=== PATIENT | male | born 1965 | race African-American/Black ===

== ENCOUNTER 2020-02-26 06:53 | Inpatient (IN) | payer BC ==
[~2020-02-26] VITALS: Ht 172.7 cm; Wt 129.7 kg
[2020-02-26] MEDS ORDERED: PROPOFOL 10MG/ML 100ML 0 ML IV ONE (07:49)
[2020-02-26] MEDS ORDERED: MIDAZOLAM HCL 2 MG/2 ML VIAL ONE ×5 (08:02→13:57)
[2020-02-26] MEDS ORDERED: FENTANYL CITRATE/PF 50MCG/ML 2ML VIAL ONE ×4 (08:02→12:47)
[2020-02-26] MEDS ORDERED: LIDOCAINE HCL 1% 20ML VIAL (Pyxis) INJ ONE ×3 (08:03→13:06)
[2020-02-26] MEDS ORDERED: GENTAMICIN/NS IRRIGATION 500 ML IR ONE (08:03)
[2020-02-26] MEDS ORDERED: IODIXANOL 320MG/ML 100 ML BOTTLE IV ONE ×2 (08:03→12:02)
[2020-02-26] MEDS ORDERED: IOHEXOL-300 100 ML BOTTLE ONE (08:03)
[2020-02-26] MEDS ORDERED: PROPOFOL 200MG/20ML VIAL IV ONE ×3 (08:08→14:35)
[2020-02-26] MEDS ORDERED: SODIUM CHLORIDE 0.9% 10ML VIAL ONE ×2 (10:43→11:06)
[2020-02-26] MEDS ORDERED: BUPIVACAINE HCL/PF 0.25% (2.5MG/ML) 10ML ONE (10:43)
[2020-02-26] MEDS ORDERED: ONDANSETRON HCL 4MG/2ML INJ ONE (10:43)
[2020-02-26] MEDS ORDERED: METOCLOPRAMIDE HCL 10MG/2ML VIAL ONE (10:43)
[2020-02-26] MEDS ORDERED: LIDOCAINE HCL/PF 1% 10 MG/ML 5ML VIAL ONE ×2 (10:43→11:09)
[2020-02-26] MEDS ORDERED: PHENYLEPHRINE HCL 10 MG/ML 1ML (IV VIAL) IV ONE (11:05)
[2020-02-26] MEDS ORDERED: CEFAZOLIN SODIUM 1000MG/VIAL ONE (11:06)
[2020-02-26] MEDS ORDERED: SPIR25TA6 MT (11:08)
[2020-02-26] MEDS ORDERED: STERILE WATER FOR INJECTION 10ML VIAL ONE (11:08)
[2020-02-26] MEDS ORDERED: ATOR40TA70 MT (11:08)
[2020-02-26] MEDS ORDERED: MULT-1146 MT (11:08)
[2020-02-26] MEDS ORDERED: ZINC50TA69 MT (11:08)
[2020-02-26] MEDS ORDERED: CARV25TA47 MT (11:08)
[2020-02-26] MEDS ORDERED: COLC0.6C3 MT (11:08)
[2020-02-26] MEDS ORDERED: FURO40TA5 MT (11:08)
[2020-02-26] MEDS ORDERED: ASCO100T2 PO (11:08)
[2020-02-26] MEDS ORDERED: SACU1TAB7 MT (11:08)
[2020-02-26] MEDS ORDERED: GENTAMICIN SULF 40MG/ML 2ML VIAL ONE (14:48)
[2020-02-26 17:08] VITALS: BP 124/75
[2020-02-26 17:26] VITALS: BP 126/68
[2020-02-26 18:00] VITALS: BP 126/68
[2020-02-26] MEDS: HYDROCODONE/ACETAMINOPHEN 5/325MG TABLET PO PRN (19:04)
[2020-02-26] MEDS ORDERED: DEXTROSE 50% WATER 50ML SYRINGE IV PRN (19:30)
[2020-02-26 20:00] VITALS: BP 109/69
[2020-02-26] MEDS: CARVEDILOL 12.5MG TABLET PO SCH (20:23)
[2020-02-26] MEDS: CEFAZOLIN 1000MG PREMIX 50 ML IV SCH (20:24)
[2020-02-26] MEDS: SACUBITRIL/VALSARTAN 49MG/51MG TABLET PO SCH (20:24)
[2020-02-26] MEDS: BLOOD SUGAR DIAGNOSTIC STRIP TEST SCH (20:57)
[2020-02-26] MEDS: INSULIN LISPRO 100 UNITS/ML SUBCUT SCH (20:57)
[2020-02-26 22:00] VITALS: BP 106/59
[2020-02-27] VITALS (13 sets, daily range): BP systolic 96–144; BP diastolic 49–95
[2020-02-27] MEDS: HYDROCODONE/ACETAMINOPHEN 5/325MG TABLET PO PRN (05:28)
[2020-02-27] MEDS: CEFAZOLIN 1000MG PREMIX 50 ML IV SCH (05:28)
[2020-02-27] MEDS: INSULIN LISPRO 100 UNITS/ML SUBCUT SCH ×2 (06:39→12:20)
[2020-02-27] MEDS: BLOOD SUGAR DIAGNOSTIC STRIP TEST SCH ×2 (06:39→11:50)
[2020-02-27 07:16] LABS: CHLORIDE 105 mEq/L (98-107)
[2020-02-27 07:31] LABS: BASOPHILS % 0.4 % (0.0-2.0); HEMATOCRIT. 38.1 % (42.0-52.0); HEMOGLOBIN. 12.7 g/dL (14.0-18.0); LYMPHOCYTES % 25.9 % (20.0-50.0); MEAN CORPUSCULAR HEMOGLOBIN 29.4 pg (28.0-32.0); MEAN PLATELET VOLUME 9.3 fl (7.4-10.4); MONOCYTES % 9.5 % (2.0-8.0); NEUTROPHILS % 62.2 % (40.0-76.0); PLATELET 200 x1000/uL (130-400); RED BLOOD CELL COUNT 4.33 mill/uL (4.7-6.1)
[2020-02-27] MEDS: SACUBITRIL/VALSARTAN 49MG/51MG TABLET PO SCH (07:45)
[2020-02-27] MEDS: CARVEDILOL 12.5MG TABLET PO SCH (08:11)
[2020-02-27] MEDS ORDERED: ATORVASTATIN CALCIUM 40MG TABLET PO SCH (09:00)
[2020-02-27] MEDS ORDERED: SPIRONOLACTONE 25MG TABLET PO SCH (09:00)
[2020-02-27] MEDS ORDERED: FUROSEMIDE 40MG TABLET PO SCH (09:00)
[2020-02-27] MEDS ORDERED: COLCHICINE 0.6MG TABLET PO SCH (09:00)
[2020-02-27] MEDS ORDERED: POLYETHYLENE GLYCOL 3350 (17GM) 1 DOSE PACK PO NR (09:15)
== END 2020-02-27 13:12 | disposition home or self-care (01) | DRG 265 ==
LOC: CCL 06:53 → 3WST 15:57
PROVIDERS: ADMIT Internal Medicine Clinical Cardiac Electrophysiology; ATTEND Internal Medicine Clinical Cardiac Electrophysiology
PROC: 02PA3MZ Removal of Cardiac Lead from Heart, Percutaneous Approach (ICD-10-PCS; principal; 2020-02-26)
PROC: 02H63KZ Insertion of Defibrillator Lead into Right Atrium, Percutaneous Approach (ICD-10-PCS; 2020-02-26)
PROC: 02HK3KZ Insertion of Defibrillator Lead into Right Ventricle, Percutaneous Approach (ICD-10-PCS; 2020-02-26)
DX: T82.198A Other mechanical complication of other cardiac electronic device, initial encounter (principal); I42.0 Dilated cardiomyopathy; I50.22 Chronic systolic (congestive) heart failure; Z68.41 Body mass index [BMI] 40.0-44.9, adult; Y83.8 Other surgical procedures as the cause of abnormal reaction of the patient, or of later complication, without mention of misadventure at the time of the procedure; E11.9 Type 2 diabetes mellitus without complications; E66.9 Obesity, unspecified; M19.90 Unspecified osteoarthritis, unspecified site; Z20.828 Contact with and (suspected) exposure to other viral communicable diseases; I25.10 Atherosclerotic heart disease of native coronary artery without angina pectoris; I44.7 Left bundle-branch block, unspecified; Z80.1 Family history of malignant neoplasm of trachea, bronchus and lung; Z82.49 Family history of ischemic heart disease and other diseases of the circulatory system; Y92.89 Other specified places as the place of occurrence of the external cause; Z88.5 Allergy status to narcotic agent; Z88.8 Allergy status to other drugs, medicaments and biological substances
CPT/HCPCS: 33225; 33264; 36415; 71045; 75820; 80048; 82962; 85025; 87426; 93005; 93308; 93451; 93641; A4216; C1769; C1882; C1887; C1893; C1900; J0690; J1580; J1644; J2250; J2370; J2405; J2704; J2765; J3010; J3490; J7040; Q9967

== ENCOUNTER 2024-05-22 09:10 | Inpatient (IN) | payer BC, MEDICAID ==
[~2024-05-22] VITALS: Ht 172.7 cm; Wt 94.3 kg
[2024-05-22] MEDS: SODIUM CHLORIDE 0.9% IR NR (08:00)
[2024-05-22] MEDS: GENTAMICIN SULFATE IR NR (08:00)
[~2024-05-22 09:10] MED LIST: ALLO300T2 PO; ASCO100T2 PO; ATOR40TA70 MT; ATOR40TA70 PO; CARV25TA47 MT; CARV3.1242 PO; COLC0.6C3 MT; COLC0.6C3 PO; FURO-152 PO; FURO40TA5 MT; MULT-1146 MT; PROT40 PO; SACU1TAB PO; SACU1TAB7 MT; SPIR25TA6 MT; ZINC50TA69 MT
[2024-05-22] MEDS ORDERED: GENTAMICIN SULF 40MG/ML 2ML VIAL ONE (09:11)
[2024-05-22] MEDS ORDERED: CEFAZOLIN SODIUM 1000MG/VIAL ONE (09:11)
[2024-05-22] MEDS ORDERED: IODIXANOL 320MG/ML 100 ML BOTTLE IV ONE (09:12)
[2024-05-22 09:36] LABS: BASOPHILS % 0.5 % (0.0-2.0); HEMATOCRIT. 34.2 % (42.0-52.0); HEMOGLOBIN. 11.4 g/dL (14.0-18.0); LYMPHOCYTES % 20.4 % (20.0-50.0); MEAN CORPUSCULAR HGB CONC 33.3 g/dL (31.0-37.0); MEAN CORPUSCULAR VOLUME 96.1 fL (80.0-94.0); MEAN PLATELET VOLUME 9.3 fl (7.4-10.4); MONOCYTES % 8.5 % (2.0-8.0); NEUTROPHILS % 69.6 % (40.0-76.0); PLATELET 146 x1000/uL (130-400); RED BLOOD CELL COUNT 3.56 mill/uL (4.7-6.1); RED CELL DISTRIBUTION WIDTH 16.9 % (11.6-14.6); WHITE BLOOD COUNT 5.1 x1000/uL (4.5-11.0)
[2024-05-22 09:44] LABS: CHLORIDE 107 mEq/L (98-107); POTASSIUM 4.1 mEq/L (3.5-5.1); SODIUM 143 mEq/L (136-145)
[2024-05-22 09:45] LABS: CALCIUM 9.5 mg/dL (8.7-10.4); CARBON DIOXIDE 31 mEq/L (21-32)
[2024-05-22 09:50] LABS: CREATININE 1.1 mg/dL (0.6-1.3); GLUCOSE 107 mg/dL (70-105); UREA NITROGEN BLOOD 21 mg/dL (9-23)
[2024-05-22] MEDS ORDERED: LIDOCAINE HCL 1% 20ML VIAL ONE ×2 (09:52→12:45)
[2024-05-22 09:55] LABS: PARTIAL THROMBOPLASTIN TIME 29.1 sec (23.4-31.0); PROTHROMBIN TIME 11.6 sec (9.6-11.0)
[2024-05-22] MEDS: SODIUM CHLORIDE 0.9% 500 ML IV SCH (10:08)
[2024-05-22] MEDS ORDERED: PHENYLEPHRINE 50MG/250ML PMX 250 ML IV ONE (10:36)
[2024-05-22] MEDS ORDERED: PROPOFOL 10MG/ML 100ML 100 ML IV ONE (10:41)
[2024-05-22] MEDS ORDERED: DOPAMINE 400MG/250ML PREMIX 250 ML IV ONE (10:41)
[2024-05-22] MEDS ORDERED: FENTANYL CITRATE/PF 50MCG/ML 2ML VIAL ONE (12:00)
[2024-05-22] MEDS ORDERED: MIDAZOLAM HCL 2 MG/2 ML VIAL ONE (12:00)
[2024-05-22] MEDS ORDERED: NALOXONE HCL 0.4MG/ML VIAL IV PRN (15:00)
[2024-05-22] MEDS: HYDROCODONE/ACETAMINOPHEN 5/325MG TABLET PO PRN (15:05)
[2024-05-22] MEDS ORDERED: HYDROMORPHONE HCL/PF 1MG/ML INJ IV PRN (15:15)
[2024-05-22] MEDS ORDERED: GLYCOPYRROLATE 0.2 MG/ML 2ML VIAL IV PRN (15:15)
[2024-05-22] MEDS ORDERED: ONDANSETRON HCL 4MG/2ML INJ IV PRN (15:15)
[2024-05-22 16:26] VITALS: BP 104/69; PULSE 83; RESP 16; TEMP 36.6; O2SAT 100
[2024-05-22 16:39] VITALS: BP 104/69; PULSE 83; RESP 16; TEMP 36.6
[2024-05-22 20:17] VITALS: BP 89/72; PULSE 82; RESP 22; TEMP 36.4; O2SAT 99
[2024-05-22 21:45] VITALS: BP 91/57; PULSE 76; TEMP 97.6; O2SAT 99
[2024-05-22 21:46] VITALS: BP 91/57; PULSE 77; RESP 17; O2SAT 99
== END 2024-05-22 23:56 | disposition home or self-care (01) | DRG 276 ==
LOC: CCL 09:10 → 3WST 16:46
PROVIDERS: ADMIT Internal Medicine Clinical Cardiac Electrophysiology; ATTEND Internal Medicine Clinical Cardiac Electrophysiology
PROC: 02HK3KZ Insertion of Defibrillator Lead into Right Ventricle, Percutaneous Approach (ICD-10-PCS; principal; 2024-05-22)
PROC: 0JH609Z Insertion of Cardiac Resynchronization Defibrillator Pulse Generator into Chest Subcutaneous Tissue and Fascia, Open Approach (ICD-10-PCS; 2024-05-22)
PROC: 02PA3MZ Removal of Cardiac Lead from Heart, Percutaneous Approach (ICD-10-PCS; 2024-05-22)
PROC: 0JPT0PZ Removal of Cardiac Rhythm Related Device from Trunk Subcutaneous Tissue and Fascia, Open Approach (ICD-10-PCS; 2024-05-22)
PROC: 02HK3KZ Insertion of Defibrillator Lead into Right Ventricle, Percutaneous Approach (ICD-10-PCS; 2024-05-22)
PROC: 05763ZZ Dilation of Left Subclavian Vein, Percutaneous Approach (ICD-10-PCS; 2024-05-22)
DX: T82.110A Breakdown (mechanical) of cardiac electrode, initial encounter (principal); I49.01 Ventricular fibrillation; I50.22 Chronic systolic (congestive) heart failure; I87.1 Compression of vein; I42.0 Dilated cardiomyopathy; I25.10 Atherosclerotic heart disease of native coronary artery without angina pectoris; I44.7 Left bundle-branch block, unspecified; E11.9 Type 2 diabetes mellitus without complications; Y83.8 Other surgical procedures as the cause of abnormal reaction of the patient, or of later complication, without mention of misadventure at the time of the procedure; Z92.3 Personal history of irradiation; Z88.5 Allergy status to narcotic agent; Z88.8 Allergy status to other drugs, medicaments and biological substances; Z92.21 Personal history of antineoplastic chemotherapy; Y92.89 Other specified places as the place of occurrence of the external cause
CPT/HCPCS: 33241; 33249; 36415; 71045; 75820; 80048; 85025; 93005; 93641; A4565; A4606; C1769; C1882; C1893; J0690; J1265; J1580; J2250; J2704; J3010; J3490; J7040; Q9967